=== PATIENT | male | born 1985 | race African-American/Black ===

== ENCOUNTER 2020-01-31 14:17 | Emergency (ER) | payer SELFPAY ==
[2020-01-31] VITALS (8 sets, daily range): BP systolic 130–142; BP diastolic 78–130; PULSE 84–112; RESP 16–18; TEMP 36.2–36.7; O2SAT 97–100; BMI 31.4
--- NOTE | 2020-01-31 15:17 | ED.DCSUM_ITS ---
History of Present Illness Chief Complaint: Mental Health Informant: Patient Narrative: Patient is a 34-year-old male who presents to the emergency department for feeling helpless and worthless. This started earlier today. He has had on and off thoughts like this over the past couple of years. He has attempted to harm himself before in the past by cutting. He does feel suicidal but does not have a plan currently. He did try crystal meth 1 week ago and states that was edematous decision of his life. He denies any issues with alcohol. Does smoke marijuana. He does smoke cigarettes. Denies any other illicit substance use. He denies any headache, vision changes. No chest pain or shortness of breath. No abdominal pain or nausea/vomiting. He is on medications for his psychiatric issues but has not been taking in the past week. Patient is from [facility] and is and is working on getting him a bus ticket back home to [place]. Past Medical History - Allergies and Home Meds Allergies/Adverse Reactions: Allergies No Known Allergies Allergy (Verified 01/31/20 14:24) Primary Care Physician: Rhonda Doctor,Out of [Primary Care Provider] - Prior records reviewed: Yes Smoking Status: Current every day smoker Alcohol: None Review of Systems All systems negative except as indicated General: Denies: Chills, Fever, Sweats Eyes: Denies: Visual changes - bilaterally, Diplopia ENT: Denies: Rhinorrhea, Sore throat Cardiovascular: Denies: Chest pain, Palpitations Respiratory: Denies: Dyspnea, Cough, Dyspnea on exertion Gastrointestinal: Denies: Abdominal pain, Nausea, Vomiting, Diarrhea Genitourinary: Denies: Dysuria, Hematuria, Frequency Musculoskeletal: Denies: Back pain, Extremity Pain Skin: Denies: Rash, Wounds Neurological: Denies: Headache, Weakness, Numbness Psych: Reports: Suicidal thoughts Physical Exam Vital Signs/Narrative: Vital Signs Temp Pulse Resp BP Pulse Ox 01/31/20 14:18 98.1 F 112 H 18 142/130 H 98 Inital Vital Signs reviewed: Yes General: Well nourished, Well developed, No Acute Distress Head: Normocephalic, Atraumatic Eyes: Perrl, EOMI ENT: Moist mucous membranes, No rhinorrhea Neck: Supple, Nontender Cardiovascular: Regular rate, Regular rhythm, No murmurs Respiratory: No distress, CTA bilaterally, Chest nontender Abdomen: Soft, Nontender, Nondistended, Normal bowel sounds Back: Nontender, Normal Inspection Extremities: Nontender, No edema Skin: Normal color, No rash Neurological: Alert, Oriented x3, Cranial nerves II-XII grossly intact, Normal Strength, Normal Sensation Psychological: Normal affect, Normal Mood, - - Patient answers questions appropriately. Does get agitated when I talk about medical clearance for crisis evaluation. Diagnostic/Tx/Re-eval - Medical Decision Making Patient presents to the ED for suicidal thoughts. He feels hopeless. Upon arrival to the emergency department he is in no acute distress. He is mildly tachycardic but otherwise benign physical exam. Will check basic lab work and consult crisis for further evaluation. Patient's lab work-up did not reveal any significant acute abnormality. He is medically cleared. We will have crisis evaluate him. Patient does not feel safe to be traveling at this time. He did have a bus ticket back to [place] but will miss this. Currently working on placement. Patient signed out due to end of shift. ED Disposition - Plan for ED Patient: Diagnosis: Suicidal ideation, Hopelessness Referrals: Rhonda Hunt,Out of [Primary Care Provider] -
[2020-01-31 16:07] LABS: Absolute Lymphocyte Count 1.43 X10^3/uL (0.83-4.51); Absolute Neutrophil Count 4.5 X10^3/uL (2.0-7.7); Anion Gap 7 (5-15); BUN 13 mg/dL (7-18); BUN/Creat Ratio 12.6 RATIO (10-20); Basophil# 0.02 X10^3/uL; Basophil% 0.3 % (0-1); Calcium,Total 9.7 mg/dL (8.5-10.1); Chloride 102 mmol/L (98-107); Creatinine, Serum 1.03 mg/dL (0.70-1.30); EST Glomerular Filtration Rate 88 mL/min (>60); Eosinophil# 0.12 X10^3/uL; Eosinophils% 1.8 % (0-5); Est Glom Filt Rate - Afr Amer 107 mL/min (>60); Estimated Creatinine Clearance 108.64 ml/min; Glucose 96 mg/dL (74-106); Hemoglobin 14.8 g/dL (13.0-16.5); Lymphocyte # 1.43 X10^3/ul (4.0); Lymphocyte % 21.5 % (19-41); Mean Corp Hgb Conc 32.2 g/dL (32-36); Mean Corpuscular Hgb 30.6 pg (27.0-32.0); Mean Corpuscular Volume 95.2 fL (80-94); Mean Platelet Vol. 10.5 fl (6.2-12.0); NRBC Flagged by Analyzer 0 % (0-5); Neutrophil # 4.46 X10^3/uL (2.7-7.7); Neutrophil % 67.2 % (47-70); Platelet Count 303 K/mm3 (150-450); Potassium 3.5 mmol/L (3.5-5.1); RBC Distribution Width CV 13.7 % (11.6-14.6); RBC Distribution Width SD 48.2 fl (35.1-43.9); Red Blood Count 4.83 M/mm3 (4.6-6.2); Sodium Level 138 mmol/L (136-145); White Blood Count 6.6 K/mm3 (4.4-11.0)
[2020-01-31 16:27] LABS: Alcohol, Blood (Medical)-Serum < 3.0 mg/dL
--- NOTE | 2020-01-31 17:00 | CM.ED ---
Social Work Consult: Suicidal Informant: Dr. Evans Chief Complaint: Patient states I feel hopeless, worthless, and don't want to be alive anymore. Marital/Social History: Legally . Patient reports to have two daughters, ages 3 and 13. Patient reports that patient motherMary Ann has custody of both children. Living Situation: Lives with mother and two daughters in [place]. Patient has been staying at [facility] [address] [place] [address] for the past few days/week. Support/Resources: Patient reports active counseling through [facility] in [place]. History: None Education/Employment History: Unemployed. Denies any issues with comprehension or understanding. Mental Health Treatment/History: Bipolar, Depression, Anxiety. Patient reports history of taking medication to manage patient mental health but to have left medication back in [place]. Patient has not been compliant with medications for the past week. Patient reports history of inpatient psychiatric placement with last placement being one year ago at a facility in [place]. Triggers/Stressors: Patient reports I made a dumb choice. Patient states to have been speaking with a girl from [facility] and I got infatuated. Patient states to have came to [place] to be with the women patient was talking to, Rosario. Patient reports to have found that Rosario is homeless and a prostitute. Patient reports that Rosario offered patient crystal meth on Wednesday and I took some. Patient reports that Rosario then left patient at the [facility] Wednesday and I have not been able to find her since. Patient reports but I also found out that she is a prostitute. Patient reports to have moved to [address] to distance self from Rosario and sort things out for the past few days. Patient states I really messed up. Coping Skills: Did not discuss. Abuse Issues: Denies Substance Abuse Hx: Patient denies substance abuse history. Patient reports I do smoke weed. Patient states to have never used Meth prior to Wednesday and denies other substance abuse outside of Marijuana. Risk to Self/Others: Patient reports active suicidal thoughts and is not willing to share plan with this community mental health social worker. Patient informed nursing staff to have been looking for a bridge. Patient brought to the emergency room via police today. Patient has been calling the police almost daily per [place] PD report. Patient reports history of suicide attempt one year ago, I was cutting myself. Patient states to feel overwhelmed currently. Patient denies thoughts of harming others or current violence against self. Mental Status Exam: A&Ox3 Appearance/General Behavior: Clean. Directable. Mood/Affect: Depressed. Elevated. Anxious. Communication Pattern: Responds to questions. Thought Process: Appropriate. Some paranoia with what are you writing down. Judgement: Poor. Assessment: Met with patient in room. Introduced self and community mental health social worker role. Patient agreeable to speak with this community mental health social worker. This community mental health social worker exploring possible options for patient as patient reports to currently not have a way to get home. Liss JULIAN updated this community mental health social worker to be working with patient family to set up a bus ticket back to [place]. Patient reports I am not mentally sound to travel. Patient states to not feel safe to self to be able to return to [place] currently. Patient plans to return to [place] ones patient has been stabilized more. This community mental health social worker provided active listening and support. Patient agreeable to this community mental health social worker speaking to both patient Aunt, Eda Lopez and patient mother, Mary Ann. Patient able to provide this community mental health social worker with copy of patient insurance information. Telephone call to Eda ([phone]). Eda voices concern of patient being able to travel as well under current mindset. This community mental health social worker voicing concern to this as well. Eda voices I am willing to help as needed but I think he needs help. Telephone call to Mary Ann ([phone]). Mary Ann also agrees with Eda on above concerns and also voices plan to help patient return to [place] when patient is medically cleared. This community mental health social worker updated Dr. Evans on above. PLAN: Facilitate transfer to inpatient psychiatric facility for stabilization. Grzegorz COLEMAN, VINOD
--- NOTE | 2020-01-31 17:26 | CM.ED ---
Social Work Patient with out of state Medicaid: [facility]. Patient able to provide this social welfare research worker with insurance card, copy made and placed on patient medical chart Telephone call to Wendy Barragan. Does not accept out of state medicaid. Telephone call to Bettie Levin. Does not accept out of state medicaid. Telephone call to [facility], jeremias. Does not accept out of state medicaid. Telephone call to [facility][1][place] jason. Does not accept out of state medicaid. Telephone call to Jennifer Flannery. Does not accept out of state medicaid. Telephone call to [facility], Does not accept out of state medicaid. Telephone call to Kaylin Hanson. Does not accept out of state medicaid. Telephone call to [facility] Caridad Glez. Does not accept out of state medicaid. Telephone call to [facility], No answer. Not able to leave voicemail. Telephone call to Crisis teamMayra. This social welfare research worker updated Mayra on above information and inquiring about [facility] referral as [facility] are continuing to communicate to not accept out of state medicaid. Mayra to assess patient and begin working on placement options for patient. This social welfare research worker to fax medical clearance when obtained. Medical team updated. Grzegorz Coreas MSW, VINOD
[2020-01-31 18:13] LABS: Amphetamine Urine VISTA POSITIVE (<1000 ng/mL); Barbiturate Urine VISTA NEGATIVE (< 200 ng/mL); Benzodiazepine Urine VISTA NEGATIVE (< 200 ng/mL); Cocaine Urine VISTA NEGATIVE (< 300 ng/mL); Ecstacy Urine VISTA POSITIVE (< 500 ng/mL); Methadone Urine VISTA NEGATIVE (< 300 ng/mL); PCP Urine VISTA NEGATIVE (< 25 ng/mL); THC Urine VISTA NEGATIVE (< 50 ng/mL); Vista UDS pH Range 6
--- NOTE | 2020-01-31 18:13 | CM.ED ---
Social Work Telephone call from Jennifer Flannery. Jennifer reports to be looking into possible options further in regards to being able to accept patient. Jennifer to get back to this medical social worker within the hour. Grzegorz Coreas MSW, VINOD
--- NOTE | 2020-01-31 19:18 | CM.ED ---
Social Work Telephone call from Kaylin Flannery. Able to review clinicals and check network status with patient insurance. Clinical information faxed. Grzegorz Coreas MSW, VINOD
[2020-01-31 19:37] LABS: AST(SGOT) 28 U/L (15-37); Alanine Aminotransfer ALT/SGPT 44 U/L (16-61); Albumin, Serum 4.1 g/dL (3.2-5.0); Alkaline Phosphatase 120 U/L (45-117); Bilirubin, Direct 0.44 mg/dL (0.00-0.30); Globulin 4.5 g/dL (2.2-4.2); Protein, Total 8.6 g/dL (6.4-8.2)
[2020-01-31 20:47] LABS: Probe Check PASS; Specimen Processing Control PASS
--- NOTE | 2020-01-31 21:10 | CM.ED ---
Social Work Telephone call to [facility] to check on referral, Kaylin reports to be continuing to attempt to verify insurance. Kaylin reports to have one more phone call to make and then will call this social science instructor back. Grzegorz COLEMAN, VINOD
--- NOTE | 2020-01-31 21:46 | CM.ED ---
Addendum entered by Hazel Coreas 01/31/20 22:01: This social worker delinquency prevention updated patient on below plan. Original Note: Social Work Telephone call from Kaylin Flannery unable to verify patient insurance due to after business hours. Kaylin reports to have tried multiple phone numbers. Kaylin reports willing to be able to call and attempt to verify insurance tomorrow morning during business hours. This social worker delinquency prevention provided Kaylin with main number for ED to call and provide update tomorrow morning on if able to accept patient. Medical team updated. Grzegorz COLEMAN, VINOD.
[2020-02-01] VITALS (16 sets, daily range): BP systolic 122–175; BP diastolic 72–98; PULSE 81–89; RESP 16–20; TEMP 36.3–36.8; O2SAT 97–99
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
[2020-02-01] MEDS: Ziprasidone IM 20 MG/ML VIAL IM (02:51)
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
--- NOTE | 2020-02-01 10:09 | CM.ED ---
SOCIAL WORK Received call from Giuliano with [facility]. Giuliano reports still working on verifying insurance at this time. Karine Stephens, DICE SPOTTER, PROCESS STEWARD
--- NOTE | 2020-02-01 10:21 | CM.ED ---
SOCIAL WORK Received call from Jennifer, Principal Consultant with [facility]. Per Jennifer, patient's HMO Medicaid through [place] does not cover [id number] behavioral health placement. [facility] would be able to accommodate self-pay ($1250.00/day). Patient unable to afford self-pay. Call to [facility], spoke with Dinorah. Dinorah provided this worker with [facility] of [facility]'s contact information as they will have to proceed with coverage for [place] as patient does not live in [place]. Call to [facility] ([phone]). Worker requests clinical information be faxed to [phone]. Counselor to review and get back to this worker. Karine Stephens, ELECTRICIAN, RING SORTER
--- NOTE | 2020-02-01 12:58 | CM.ED ---
SOCIAL WORK Call to [facility] to verify fax received. Worker states it has been received and has not yet been printed off for counselor. Worker reports all information printed and given to a counselor at this time for review. Pending review for [facility] at this time. Karine Stephens, NATIONAL SALES DIRECTOR, COAT CHECK ATTENDANT
--- NOTE | 2020-02-01 13:11 | CM.ED ---
SOCIAL WORK Received call from Dr. Paco Starks with [facility] requesting to speak with patient. Call facilitated with patient at this time. Karine Stephens, ANALYTICAL DATA MINER, NEGATIVE TURNER
--- NOTE | 2020-02-01 13:30 | CM.ED ---
SOCIAL WORK Received call back from Dr. Paco Starks with [facility]. Per Dr. Starks, bed days for [facility] have been approved. Dr. Starks requesting this worker fax over all information to [facility]'s CNO ([phone]). Patient is number 7 on wait list. Staff updated. Plan: Awaiting bed at [facility] Karine Stephens, BRANCH LENDING MANAGER, LOCKSTITCH WAISTLINE JOINER
--- NOTE | 2020-02-01 14:58 | CM.ED ---
SOCIAL WORK Received call from La Nena with [facility]. Per La Nena, received clinical information for patient, however, did not receive approval for bed days from [facility]. Informed this worker was updated by Dr. Paco Starks that bed days have been approved and that patient is number 7 on wait list. La Nena requesting this worker contact [facility] and have them call [facility]. Call to [facility]. Updated on the above. Dr. Starks to contact La Nena at [facility]. Karine Stephens, MICROARRAY ANALYST, SPRINKLER INSPECTOR
--- NOTE | 2020-02-01 18:03 | ED.RN ---
PER JAKE; PT IS 7TH ON THE LIST FOR [facility]
--- NOTE | 2020-02-01 19:06 | EKG12_ITS ---
Test Reason : MENTAL HEALTH Blood Pressure : / mmHG Vent. Rate : 083 BPM Atrial Rate : 083 BPM P-R Int : 156 ms QRS Dur : 098 ms QT Int : 384 ms P-R-T Axes : 045 015 010 degrees QTc Int : 451 ms Normal sinus rhythm Normal ECG Confirmed by GENET BURKETT, KELSEA ([id number]), editorial director REINIER WHELAN ([id number]) on 02/02/2020 10:54:30 AM Referred By: DR. CARTER Confirmed By:KELSEA DE LEÓN MD
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
[2020-02-01] MEDS: Ziprasidone HCl 20 MG Capsule PO (23:53)
[2020-02-02] VITALS (21 sets, daily range): BP systolic 127–175; BP diastolic 63–99; PULSE 78–108; RESP 16–20; TEMP 36.8–37; O2SAT 95–99
--- NOTE | 2020-02-02 09:01 | NURSING ---
FAXED CHART TO [facility]
--- NOTE | 2020-02-02 10:45 | CM.ED ---
SOCIAL WORK Reviewed case with Dinorah from Crisis. Per Dinorah, called in this morning and completed assessment due to patient being out of state. Dinorah to fax over crisis assessment. Plan for [facility] when bed becomes available. Staff antionette. Karine Stephens, MAINSPRING WINDER, HYDROLOGY TECHNICIAN
--- NOTE | 2020-02-02 14:19 | CM.ED ---
SOCIAL WORK Met with patient in room to update on status with placement at [facility]. Informed patient he is on wait list. All questions answered. Patient calm and cooperative. Plan: Awaiting bed at [facility] Karine Stephens MSW, BUSINESS ENTERPRISE OFFICER
--- NOTE | 2020-02-02 16:29 | NURSING ---
CALLED CRISIS ABOUT PATIENT, LEFT MESSAGE FOR THEM TO CALL ER
--- NOTE | 2020-02-02 16:34 | NURSING ---
NO BED AT [facility] TODAY
--- NOTE | 2020-02-02 17:04 | CM.ED ---
SOCIAL WORK Call from Dinorah with [facility]. Per Dinorah, spoke with La Nena at [facility] and La Nena reports will have bed for patient tomorrow. Patient and staff updated. Crisis to set up transport for patient upon discharge. [facility] and on site wastewater systems technician updated. Karine Stephens, CORSETS SALESPERSON, SUPERINTENDENT DRILLING
[2020-02-03 01:00] VITALS: RESP 16
[2020-02-03 02:36] VITALS: RESP 16
[2020-02-03 03:53] VITALS: BP 151/87; PULSE 109; RESP 20; O2SAT 99
[2020-02-03 04:31] VITALS: RESP 16
[2020-02-03 05:30] VITALS: RESP 16
[2020-02-03 07:02] VITALS: BP 158/97; PULSE 99; RESP 18; TEMP 36.3; O2SAT 99
== END 2020-02-03 07:45 ==
LOC: ED 16:14
PROVIDERS: Emergency Provider Emergency Medicine
DX: R45.851 Suicidal ideations (principal); F17.210 Nicotine dependence, cigarettes, uncomplicated; F12.90 Cannabis use, unspecified, uncomplicated
CPT/HCPCS: 80048; 80076; 80307; 80320; 85025; 87635; 93005; 96372; 99284; G0480; J3486; U0002